=== PATIENT | female | born 1995 | race Two or more races ===

== ENCOUNTER 2023-02-14 15:10 | Outpatient (CLI) | payer OTHER | END 2023-02-14 17:31 | disposition home or self-care (01) | LOC: PRENATAL 15:10 | PROVIDERS: ATTEND Obstetrics & Gynecology Maternal & Fetal Medicine | DX: O26.849 Uterine size-date discrepancy, unspecified trimester (principal); Z36.9 Encounter for antenatal screening, unspecified; Z3A.15 15 weeks gestation of pregnancy ==

== ENCOUNTER 2023-03-18 11:29 | Outpatient (CLI) | payer OTHER | END 2023-03-18 11:30 | disposition home or self-care (01) | LOC: PRENATAL 11:29 | PROVIDERS: ATTEND Obstetrics & Gynecology Maternal & Fetal Medicine | DX: O35.3XX0 Maternal care for (suspected) damage to fetus from viral disease in mother, not applicable or unspecified (principal); O44.00 Complete placenta previa NOS or without hemorrhage, unspecified trimester; O99.891 Other specified diseases and conditions complicating pregnancy; Z3A.19 19 weeks gestation of pregnancy ==

== ENCOUNTER 2023-05-21 10:14 | Outpatient (CLI) | payer OTHER | END 2023-05-21 10:15 | disposition home or self-care (01) | LOC: PRENATAL 10:14 | PROVIDERS: ATTEND Obstetrics & Gynecology Maternal & Fetal Medicine | DX: O26.849 Uterine size-date discrepancy, unspecified trimester (principal); O44.00 Complete placenta previa NOS or without hemorrhage, unspecified trimester; Z3A.28 28 weeks gestation of pregnancy ==

== ENCOUNTER 2023-07-02 10:20 | Outpatient (CLI) | payer OTHER | END 2023-07-02 10:21 | disposition home or self-care (01) | LOC: PRENATAL 10:20 | PROVIDERS: ATTEND Obstetrics & Gynecology Maternal & Fetal Medicine | DX: O26.849 Uterine size-date discrepancy, unspecified trimester (principal); O36.8199 Decreased fetal movements, unspecified trimester, other fetus; O99.891 Other specified diseases and conditions complicating pregnancy; Z3A.34 34 weeks gestation of pregnancy ==